=== PATIENT | male | born 1960 | race Caucasian/White ===

== ENCOUNTER → 2016-07-15 | Outpatient (CLI) | payer OTHER, BC ==
[~2016-07-15] VITALS: Ht 177.8 cm; Wt 117.9 kg
[~2016-07-15] MED LIST: CENTRUM ULTRA1 EACH PO; HYDROCHLOROTHIA25 MG PO; K-DUR20 MEQ PO; PRESERVISION T1 EACH PO; PROTONIX40 MG PO; TOPROL XL25 MG PO
== END | disposition home or self-care (01) ==
LOC: AMB 12:11
PROC: 0DJ08ZZ Inspection of Upper Intestinal Tract, Via Natural or Artificial Opening Endoscopic (ICD-10-PCS; principal; 2016-07-15)
DX: K29.70 Gastritis, unspecified, without bleeding (principal); I10 Essential (primary) hypertension; G47.30 Sleep apnea, unspecified; E66.01 Morbid (severe) obesity due to excess calories; Z68.38 Body mass index [BMI] 38.0-38.9, adult; Z87.891 Personal history of nicotine dependence; Z88.1 Allergy status to other antibiotic agents
CPT/HCPCS: B4087; J2250; J3010

== ENCOUNTER 2016-07-30 06:37 | Inpatient (IN) | payer OTHER, BC ==
[~2016-07-30] VITALS: Ht 177.8 cm; Wt 117.9 kg
[2016-07-30 07:34] VITALS: BP 143/90
[2016-07-30 13:21] LABS: GFR ESTIMATE (CALCULATED) > 59 mL/min/
[2016-07-30 14:25] VITALS: BP 120/80
[2016-07-30 20:00] VITALS: BP 137/78
[2016-07-30 23:35] VITALS: BP 137/84
[2016-07-31 04:00] VITALS: BP 137/84
[2016-07-31 06:50] LABS: HEMATOCRIT 44.3 % (38.0-50.0); MCH 31.4 PG (29.0-34.0); MCHC 33.4 G/DL (30.0-36.0); MCV 94.1 FL (86-99); MEAN PLAT.VOLUME 10.2 uM^3 (9.0-12.4); PLATELET COUNT 201 K/uL (156-360); RBC DIS.WIDTH-CV 15.2 % (11.8-14.6); RBC DIS.WIDTH-SD 52.1 % (39-53); RED BLOOD COUNT 4.71 M/uL (4.00-5.50); WHITE BLOOD COUNT 12.5 K/uL (4.1-10.2)
[2016-07-31 07:10] LABS: ANION GAP 9 MEQ/L (2-14); CHLORIDE 101 MEQ/L (99-109); GFR ESTIMATE (CALCULATED) > 59 mL/min/; GLUCOSE 97 mg/dL (70-99); MAGNESIUM 1.8 mg/dl (1.3-2.7); POTASSIUM 3.5 MEQ/L (3.7-5.4); SAMPLE HEMOLYSIS CHECK 0; SAMPLE ICTERIC CHECK 0; SAMPLE LIPEMIA CHECK 0; SODIUM 137 MEQ/L (136-147); UREA NITROGEN (BUN) 9 mg/dL (9-23)
[2016-07-31 07:39] VITALS: BP 148/80
[2016-07-31] MEDS ORDERED: HYDROCODON-ACE1 EAC7 PO (08:13)
[2016-07-31 12:32] VITALS: BP 129/86
== END 2016-07-31 16:42 | disposition home or self-care (01) | DRG 621 ==
LOC: 2SOUTH 06:37 → 2WEST 14:16 → 2SOUTH 15:29 → 2EASTP 17:03
PROVIDERS: Surgery
PROC: 0DB64Z3 Excision of Stomach, Percutaneous Endoscopic Approach, Vertical (ICD-10-PCS; principal; 2016-07-30)
DX: E66.01 Morbid (severe) obesity due to excess calories (principal); K76.0 Fatty (change of) liver, not elsewhere classified; I10 Essential (primary) hypertension; G47.30 Sleep apnea, unspecified; K21.9 Gastro-esophageal reflux disease without esophagitis; M15.9 Polyosteoarthritis, unspecified; Z68.37 Body mass index [BMI] 37.0-37.9, adult
CPT/HCPCS: 80048; 82565; 82948; 83735; 84100; 85027; 94799; J0131; J0330; J0461; J1170; J1580; J1644; J1650; J1815; J1885; J2270; J2405; J3010; J3480; J7050; J7120; S0020